=== PATIENT | female | born 1970 | race Caucasian/White ===

== ENCOUNTER 2020-06-09 12:50 | Emergency (ER) | payer OTHER ==
[~2020-06-09] VITALS: Ht 172.7 cm; Wt 62.6 kg
[~2020-06-09 12:50] MED LIST: DIPHENHYDRAMINE25 M1 PO; PREDNISONE20 MG PO; PULMICORT FLEX90 MCG INH; ZANTAC150 MG PO
--- NOTE | 2020-06-09 20:09 | EKG ---
[facility] [address] [place], [place] [address] \T\ T wave abnormality, consider inferior ischemia Abnormal ECG When compared with ECG of 15-FEB-2016 12:45, Nonspecific T wave abnormality has replaced inverted T waves in Lateral leads Confirmed by PALMIRA CARRANZA DO ([id number]) on 06/09/2020 8:09:30 PM Electronically Signed By: PALMIRA CARRANZA DO 06/09/202008 PATIENT NAME: NISHANT PATTERSON Electrocardiogram DATE OF : 74 PHYSICIAN: PALMIRA CARRANZA DO REPORT #: [id number] REPORT IS CONFIDENTIAL AND NOT TO BE RELEASED WITHOUT AUTHORIZATION
== END 2020-06-09 16:20 | disposition home or self-care (01) ==
LOC: ED 12:50
DX: R00.2 Palpitations (principal); J45.909 Unspecified asthma, uncomplicated; Z91.018 Allergy to other foods
CPT/HCPCS: 71045; 80053; 83735; 84484; 85025; 85379; 93005; 93010; 99285-25